=== PATIENT | male | born 1940 | race Hispanic/Latino ===

== ENCOUNTER 2018-03-05 12:43 | Outpatient (CLI) | payer MEDICARE, OTHER ==
[2018-03-05 14:17] LABS: Anion Gap 11 mmol/L (10-20); BUN (Urea Nitrogen) 18 mg/dL (8.4-25.7); Calc. Creatinine Clearance 0 mL/min (70-130); Calcium 10.3 mg/dL (7.8-10.44); Carbon Dioxide 27 mmol/L (23-31); Chloride 106 mmol/L (98-107); Estimated GFR-MDRD 83; Glucose 89 mg/dL (83-110); Potassium 5.5 mmol/L (3.5-5.1); Sodium 138 mmol/L (136-145)
== END 2018-03-05 12:44 | disposition home or self-care (01) ==
LOC: LABBT 12:43
PROVIDERS: ATTEND Internal Medicine Cardiovascular Disease
DX: Z01.818 Encounter for other preprocedural examination (principal); R55 Syncope and collapse
CPT/HCPCS: 80048

== ENCOUNTER → 2018-03-06 | Day surgery (SDC) | payer MEDICARE, OTHER ==
[2018-03-05 13:00] VITALS: BMI 28.2
[~2018-03-06] MED LIST: Lidocaine 1% w/Epinephrine 1:100K 30 ML VIAL ONE; Midazolam HCl 2 mg/2 ml Vial ONE; PHENYLEPHRINE-NS 100 MCG/ML 10 ML SYRINGE ONE
--- NOTE | 2018-03-06 10:05 | DIS ---
He was seen in the outpatient facility to undergo a percutaneous implant of a loop recorder. This wa s performed without difficulties or complications. It was implanted due to episode of syncope, the i ndication for the procedure. DISCHARGE DIAGNOSES: Syncope. He also has history of coronary artery disease, which remained stable . He was implanted with the device without difficulties or complications. DISCHARGE MEDICATIONS: Remain the same as admission medications. I will see him back in the office in 7-10 days for a wound check and will continue to monitor him on a routine basis to determine possible etiology of his syncopal episodes. There were no difficulties or complications encountered otherwise.
--- NOTE | 2018-03-06 19:48 | CCL ---
INDICATION FOR PROCEDURE: A 77-year-old patient with episode of syncope of uncertain etiology. He was advised to is an implant able Linq loop recorder. This was performed today without difficulties or complications. He was taken to the recovery where he did not receive any anesthesia. He was prepped and draped in s terile fashion. Using sterile technique, the implantable loop device was implanted underneath the sk in between the third and fourth intercostal spaces on the left side. He had normal sensing of the de vice. There were no complications or difficulties.
== END ==
LOC: CCL 08:43
PROVIDERS: ATTEND Internal Medicine Cardiovascular Disease
PROC: 0JH602Z Insertion of Monitoring Device into Chest Subcutaneous Tissue and Fascia, Open Approach (ICD-10-PCS; principal; 2018-03-06)
DX: R55 Syncope and collapse (principal); I25.10 Atherosclerotic heart disease of native coronary artery without angina pectoris; Z88.0 Allergy status to penicillin; Z88.1 Allergy status to other antibiotic agents
CPT/HCPCS: 33282; C1764; J2001; J2250

== ENCOUNTER 2020-07-23 11:37 | Outpatient (CLI) | payer MEDICARE, OTHER ==
--- NOTE | 2020-07-23 12:46 | MRI ---
MRI lumbar spine noncontrast: HISTORY: Spinal stenosis. Low back pain radiating to both feet. COMPARISON: None FINDINGS: Appropriate T1 marrow signal intensity of the lumbar vertebra. Lumbar spine vertebral body heights ar e maintained from L1 through L3 and at L5. There is an acute Schmorl's node/superior endplate irregularity involving the L4 vertebral body. There is associated T2 hyperintensity and STIR hyperint ensity. No additional significant STIR hyperintensity is noted. Edema does involve the right L4 pedicle. Small amount of edema and fluid are noted in the left and right L3-L4 facet joints. Moderate loss of vertebral body height in the midportion of the L4 vertebral body. Appropriate signal intensity of the visualized paraspinal muscles and solid organs. Bilateral renal c ortical cysts are noted. Conus medullaris terminates at the inferior aspect of T12. Spondylolisthesis: T12-L1: 2.2 mm of retrolisthesis L1-L2: 3.3 mm of retrolisthesis L2-L3: 3.3 mm of retrolisthesis L3-L4: 4.8 mm of retrolisthesis The overall AP diameter of the central spinal canal is narrowed secondary to congenitally foreshorten ed pedicles. T12-L1:Mild loss of disc space height. Broad-based disc bulge with mild to moderate central canal elyssa nosis. Mild bilateral neural foraminal narrowing. L1-L2:Mild loss of disc space height. Broad-based disc bulge, ligamentum flavum thickening and facet hypertrophy are present. There is a left subarticular disc herniation with slight inferior disc migration. There is mass effect and obscuration of the traversing left L2 nerve root. Overall mild ce ntral canal stenosis. Moderate bilateral neural foraminal narrowing. L2-L3:Disc desiccation without significant loss of disc space height. Broad-based disc bulge, ligamen valente flavum thickening and facet hypertrophy result in moderate central canal stenosis. Moderate bilateral neural foraminal narrowing. L3-L4:Broad-based disc bulge, ligamentum flavum thickening and facet hypertrophy. Moderate to severe central canal stenosis. Moderate to severe bilateral neural foraminal narrowing. L4-L5:Mild loss of disc space height. Broad-based disc bulge, ligamentum flavum thickening and facet hypertrophy. Moderate to severe central canal stenosis. Near complete obscuration of bilateral traversing L5 nerve roots. Moderate bilateral neural foraminal narrowing. L5-S1:Adequate disc hydration. Broad-based disc bulge, ligamentum flavum thickening and facet hypertr ophy result in moderate central canal stenosis. There is fluid in both facet joints. There is narrowing of bilateral subarticular zones, left greater than right. Partial obscuration of the aldo sing right S1 nerve root. Near complete obscuration of the traversing left S1 nerve root. Mild to moderate bilateral neural foraminal narrowing. IMPRESSION: 1. Multilevel degenerative changes of the lumbar spine as described above. 2. Acute Schmorl's node with moderate loss of vertebral body height at L4. No significant retropulsio n. Transcribed Date/Time: 07/23/2020 1:19 PM
== END 2020-07-23 11:38 | disposition home or self-care (01) ==
LOC: MRI 11:37
PROVIDERS: ATTEND Neurological Surgery
DX: M48.062 Spinal stenosis, lumbar region with neurogenic claudication (principal); M47.816 Spondylosis without myelopathy or radiculopathy, lumbar region
CPT/HCPCS: 72148

== ENCOUNTER 2020-08-19 06:58 | Outpatient (CLI) | payer MEDICARE ==
[2020-08-19 15:50] LABS: Hemoglobin 13.8 g/dL (14.0-18.0); Mean Corpuscular HGB CONC 32.6 G/DL (32.0-36.0); Mean Corpuscular Hemoglobin 30.4 PG (27.0-33.0); Mean Corpuscular Volume 93.2 fl (80.0-100.0); Mean Platelet Volume 9.8 fl (7.4-10.4); Platelet Count 300 10x3/uL (130-400); RBC Distribution Width 13.8 % (11.5-14.5); Red Blood Cell (RBC) Count 4.54 10x6/uL (4.40-5.80); White Blood Cell (WBC) Count 10.2 10x3/uL (4.5-11.0)
[2020-08-19 16:34] LABS: Anion Gap 13 mmol/L (10-20); BUN (Urea Nitrogen) 16 mg/dL (8.4-25.7); Calc. Creatinine Clearance 0 mL/min (70-130); Calcium 9.9 mg/dL (7.8-10.44); Carbon Dioxide 25 mmol/L (23-31); Chloride 106 mmol/L (98-107); Estimated GFR-MDRD 77; Glucose 86 mg/dL (83-110); Potassium 4.9 mmol/L (3.5-5.1); Sodium 139 mmol/L (136-145)
[2020-08-20 03:40] LABS: SARS-CoV-2 MS2 Positive; SARS-CoV-2 N Gene Negative; SARS-CoV-2 S Gene Negative; SARS-CoV-2 by NAA Not Detected (NotDetected); SARS-CoV-2 orf1ab Negative
== END 2020-08-19 06:59 | disposition home or self-care (01) ==
LOC: LABBT 06:58
PROVIDERS: ATTEND Neurological Surgery
DX: Z01.812 Encounter for preprocedural laboratory examination (principal); Z20.828 Contact with and (suspected) exposure to other viral communicable diseases; M48.061 Spinal stenosis, lumbar region without neurogenic claudication
CPT/HCPCS: 80048; 85027; U0003; 87635

== ENCOUNTER 2020-08-24 07:31 | Day surgery (SDC) | payer MEDICARE ==
[2020-08-18 11:25] VITALS: BMI 27.7
--- NOTE | 2020-08-23 21:53 | HP ---
HISTORY OF PRESENT ILLNESS: Mr. Bey is a pleasant 80-year-old man, presenting for evaluation of significant and classic symptoms of neurogenic claudication. MRI scan performed reveals high-grade lumbar stenosis from L3-L5, which would well explain the symptoms that he is experiencing. He hopes to discuss surgical intervention. PAST MEDICAL HISTORY: Significant for hypertension, hyperlipidemia, and coronary arterial disease. CURRENT MEDICATIONS: 1. Carvedilol. 2. Atorvastatin. 3. Aspirin. 4. Vitamin . PAST SURGICAL HISTORY: Tonsillectomy. ALLERGIES: PENICILLIN AND LEVAQUIN. PHYSICAL EXAMINATION: The patient has a slowed antalgic gait, although maintains 5/5 strength in all lower extremity movements bilaterally. ASSESSMENT: Lumbar stenosis with claudication. PLAN: Dr. Kuhn met with the patient, reviewed imaging, and advocated for L3-L5 decompression. He explained to the patient risks, benefits, and alternatives to the procedure. The patient expressed understanding and elected to moved forward with surgery as discussed. I do believe the patient is mentally competent and capable of making medical decisions for himself. We will move forward with surgery as planned. Job ID: [id number]
[2020-08-24] MEDS ORDERED: Vancomycin 1 GM/200 ML BAG ONE ×2 (10:14)
[2020-08-24] MEDS ORDERED: EPINEPHrine 1 MG/ML AMP ONE (10:33)
[2020-08-24] MEDS ORDERED: Thrombin 5000 UNITS/5 ML VIAL ONE (10:33)
[2020-08-24] MEDS ORDERED: Bupivacaine PF 0.5% 30 ML VIAL ONE (10:33)
[2020-08-24] MEDS ORDERED: Fentanyl 100 MCG/2 ML VIAL ONE ×2 (10:39→13:07)
[2020-08-24] MEDS ORDERED: HYDROmorphone 0.5 MG/0.5 ML SYRINGE ONE (12:44)
[2020-08-24] MEDS ORDERED: Tamsulosin HCl 0.4 MG CAP ONE (12:44)
[2020-08-24] MEDS ORDERED: PROPOFOL 200 MG/20 ML VIAL ONE (13:57)
[2020-08-24] MEDS ORDERED: Ondansetron PF 4 MG/2 ML Vial ONE (13:57)
[2020-08-24] MEDS ORDERED: Lidocaine 1% PF 5 ML VIAL ONE (13:57)
[2020-08-24] MEDS ORDERED: ePHEDrine 50 MG/ML VIAL ONE (13:57)
[2020-08-24] MEDS ORDERED: Dexamethasone 20 MG/5 ML VIAL ONE (13:57)
[2020-08-24] MEDS ORDERED: Glycopyrrolate 0.2 MG/ML 5 ML SYRINGE ONE (13:57)
[2020-08-24] MEDS ORDERED: Rocuronium Bromide 10 MG/ML (10ML VIAL) ONE (13:57)
[2020-08-24] MEDS ORDERED: PHENYLEPHRINE-NS 100 MCG/ML 10 ML SYRINGE ONE (13:57)
--- NOTE | 2020-08-25 11:33 | OP ---
DATE OF PROCEDURE: 08/24/2020 [employer]MER: Titus Kim PA-C INDICATION: Pain. DIAGNOSIS: Lumbar stenosis. PROCEDURES PERFORMED: L3 through L5 lumbar decompression. ANESTHESIA: General. DESCRIPTION OF PROCEDURE: The patient was brought into the operating room and placed under general anesthesia. He was flipped from the supine to prone position on the operating room table. A linear incision was planned spanning L3 through L5. After prepping and draping and after an appropriate preoperative pause, the incision was created. The soft tissues were swept away from midline. A self-retaining retractor was placed for optimal exposure. After confirming the appropriate level with C-arm fluoroscopy, an Adson rongeur was used to remove the spinous process of L4, the inferior aspect of L3, and the superior aspect of L5. After completing the removal of the spinous processes, a high-speed cutting drill bit as well as 2, 3, and 4 mm Kerrisons were then used to complete the laminectomy spanning L3-L4 and L4-L5 segments. The laminectomy was extended laterally to encompass the medial aspect of the facet joints. After completing the decompression, the wound was irrigated. Hemostasis was maintained throughout. The wound was then closed in anatomic layers, and a pressure dressing was applied. There were no known procedural complications. Job ID: [id number]
== END 2020-08-24 21:10 | disposition home or self-care (01) ==
LOC: SDC 07:31
PROVIDERS: ATTEND Neurological Surgery
PROC: 00NY0ZZ Release Lumbar Spinal Cord, Open Approach (ICD-10-PCS; principal; 2020-08-24)
DX: M48.062 Spinal stenosis, lumbar region with neurogenic claudication (principal); I10 Essential (primary) hypertension; I25.10 Atherosclerotic heart disease of native coronary artery without angina pectoris; E78.5 Hyperlipidemia, unspecified; Z79.82 Long term (current) use of aspirin; Z79.899 Other long term (current) drug therapy; Z88.0 Allergy status to penicillin; Z88.1 Allergy status to other antibiotic agents
CPT/HCPCS: 76000; J0171; J1100; J1170; J2405; J2704; J3010; J3370; J3490; S0020

== ENCOUNTER 2021-08-26 10:24 | Outpatient (CLI) | payer MEDICARE | END 2021-08-26 10:25 | disposition home or self-care (01) | LOC: MRI 10:24 | PROVIDERS: ATTEND Neurological Surgery | DX: M47.26 Other spondylosis with radiculopathy, lumbar region (principal); M48.061 Spinal stenosis, lumbar region without neurogenic claudication; M48.07 Spinal stenosis, lumbosacral region; Z98.890 Other specified postprocedural states | CPT/HCPCS: 72158 ==

== ENCOUNTER 2021-11-10 10:17 | Outpatient (CLI) | payer MEDICARE ==
[2021-11-10 11:42] LABS: Hemoglobin 12.4 g/dL (13.5-17.5); Mean Corpuscular HGB CONC 31.5 g/dL (32.0-36.0); Mean Corpuscular Volume 95.4 fl (81.2-95.1); Mean Platelet Volume 9.8 fl (7.4-10.4); Platelet Count 286 10x3/uL (150-450); Red Blood Cell (RBC) Count 4.13 10x6/uL (4.32-5.72); White Blood Cell (WBC) Count 10.5 10x3/uL (3.5-10.5)
[2021-11-10 12:03] LABS: Anion Gap 12 mmol/L (10-20); BUN (Urea Nitrogen) 11 mg/dL (8.4-25.7); Calc. Creatinine Clearance 0 mL/min (70-130); Calcium 9.9 mg/dL (7.8-10.44); Carbon Dioxide 24 mmol/L (23-31); Chloride 110 mmol/L (98-107); Glucose 98 mg/dL (83-110); Potassium 4.3 mmol/L (3.5-5.1); Sodium 142 mmol/L (136-145)
[2021-11-10 17:56] LABS: SARS-CoV-2 PCR by NAA Not Detected (NotDetected)
== END 2021-11-10 10:18 | disposition home or self-care (01) ==
LOC: LABBT 10:17
PROVIDERS: ATTEND Neurological Surgery
DX: Z01.818 Encounter for other preprocedural examination (principal); M54.16 Radiculopathy, lumbar region; Z20.822 Contact with and (suspected) exposure to COVID-19
CPT/HCPCS: 80048; 85027; 93005; U0003; U0005; 93010

== ENCOUNTER 2021-11-15 06:27 | Day surgery (SDC) | payer MEDICARE ==
[2021-11-10 12:11] VITALS: BMI 25.7
[2021-11-15] MEDS ORDERED: EPINEPHrine 1 MG/ML AMP ONE (08:48)
[2021-11-15] MEDS ORDERED: Bupivacaine PF 0.5% 30 ML VIAL ONE (08:48)
[2021-11-15] MEDS ORDERED: Fentanyl 250 MCG/5 ML VIAL ONE ×2 (08:52→10:56)
[2021-11-15] MEDS ORDERED: SUGAMMADEX SODIUM 200 MG/2 ML VIAL ONE (09:05)
[2021-11-15] MEDS ORDERED: Vancomycin 1 GM/200 ML BAG ONE (09:05)
[2021-11-15] MEDS ORDERED: Lidocaine 1% PF 5 ML VIAL ONE (09:13)
[2021-11-15] MEDS ORDERED: Dexamethasone 20 MG/5 ML VIAL ONE (09:13)
[2021-11-15] MEDS ORDERED: PHENYLEPHRINE-NS 100 MCG/ML 10 ML SYRINGE ONE (09:13)
[2021-11-15] MEDS ORDERED: Ondansetron PF 4 MG/2 ML Vial ONE (09:13)
[2021-11-15] MEDS ORDERED: PROPOFOL 200 MG/20 ML VIAL ONE (09:13)
[2021-11-15] MEDS ORDERED: Rocuronium Bromide 10 MG/ML (10ML VIAL) ONE (09:13)
[2021-11-15] MEDS ORDERED: Tamsulosin HCl 0.4 MG CAP ONE (10:39)
[2021-11-15] MEDS ORDERED: HYDROcodone/Acetaminophen 5/325 mg Tablet ONE (11:57)
== END 2021-11-15 14:27 | disposition home or self-care (01) ==
LOC: SDC 06:27
PROVIDERS: ATTEND Neurological Surgery
PROC: 01NB0ZZ Release Lumbar Nerve, Open Approach (ICD-10-PCS; principal; 2021-11-15)
DX: M54.16 Radiculopathy, lumbar region (principal); J45.909 Unspecified asthma, uncomplicated; I25.10 Atherosclerotic heart disease of native coronary artery without angina pectoris; I10 Essential (primary) hypertension; E78.5 Hyperlipidemia, unspecified; Z79.82 Long term (current) use of aspirin; Z79.899 Other long term (current) drug therapy; Z88.0 Allergy status to penicillin; Z88.1 Allergy status to other antibiotic agents; Z95.0 Presence of cardiac pacemaker; Z98.890 Other specified postprocedural states
CPT/HCPCS: 76000; J0171; J1100; J2405; J2704; J3010; J3370; S0020

== ENCOUNTER 2022-11-16 10:27 | Outpatient (CLI) | payer MEDICARE, OTHER ==
[2022-11-16 12:37] LABS: Mean Corpuscular Hemoglobin 29.7 pg (27.0-33.0); Mean Corpuscular Volume 92.8 fl (81.2-95.1); Mean Platelet Volume 9.6 fl (7.4-10.4); Platelet Count 387 10x3/uL (150-450); RBC Distribution Width 15.5 % (11.5-14.5); Red Blood Cell (RBC) Count 4.04 10x6/uL (4.32-5.72); White Blood Cell (WBC) Count 9.2 10x3/uL (3.5-10.5)
[2022-11-16 13:00] LABS: INR-International Normal Ratio 0.9; PTT 25.9 sec (22.0-33.0); Prothrombin Time 10.1 sec (9.5-12.1)
[2022-11-16 13:07] LABS: Anion Gap 17 mmol/L (10-20); BUN (Urea Nitrogen) 17 mg/dL (8.4-25.7); Calc. Creatinine Clearance 0 mL/min (70-130); Calcium 10.4 mg/dL (7.8-10.44); Carbon Dioxide 19 mmol/L (23-31); Chloride 108 mmol/L (98-107); Estimated GFR 70; Glucose 89 mg/dL (83-110); Potassium 5.2 mmol/L (3.5-5.1); Sodium 139 mmol/L (136-145)
== END 2022-11-16 10:28 | disposition home or self-care (01) ==
LOC: LABBT 10:27
PROVIDERS: ATTEND Urology
DX: Z01.812 Encounter for preprocedural laboratory examination (principal); D49.4 Neoplasm of unspecified behavior of bladder
CPT/HCPCS: 80048; 85027; 85610; 85730; 87086

== ENCOUNTER 2022-11-21 06:53 | Day surgery (SDC) | payer MEDICARE, OTHER ==
[2022-11-17 16:31] VITALS: BMI 24.5
[2022-11-21] MEDS ORDERED: mitoMYcin 40 MG in Sodium Chloride 0.9% 40 ML I-VESIC SCH ×2 (08:45→10:00)
[2022-11-21] MEDS ORDERED: Sodium Chloride 0.9% 100 ML ONE (08:54)
[2022-11-21] MEDS ORDERED: CEFAZOLIN 2 GM VIAL ONE (08:54)
[2022-11-21] MEDS ORDERED: Dexamethasone 20 MG/5 ML VIAL ONE (09:04)
[2022-11-21] MEDS ORDERED: PROPOFOL 200 MG/20 ML VIAL ONE (09:04)
[2022-11-21] MEDS ORDERED: Glycopyrrolate 0.2 MG/ML 5 ML SYRINGE ONE (09:04)
[2022-11-21] MEDS ORDERED: Ondansetron PF 4 MG/2 ML Vial ONE (09:04)
[2022-11-21] MEDS ORDERED: Lidocaine 1% PF 5 ML VIAL ONE (09:04)
[2022-11-21] MEDS ORDERED: Rocuronium Bromide 10 MG/ML (10ML VIAL) ONE (09:04)
[2022-11-21] MEDS ORDERED: NEOSTIGMINE 3 MG/3 ML SYR 3 MG/3 ML SYRINGE ONE (09:04)
== END 2022-11-21 11:10 | disposition home or self-care (01) ==
LOC: SDC 06:53
PROVIDERS: ATTEND Urology
PROC: 0TBB8ZZ Excision of Bladder, Via Natural or Artificial Opening Endoscopic (ICD-10-PCS; principal; 2022-11-21)
PROC: 3E0K805 Introduction of Other Antineoplastic into Genitourinary Tract, Via Natural or Artificial Opening Endoscopic (ICD-10-PCS; 2022-11-21)
DX: C67.2 Malignant neoplasm of lateral wall of bladder (principal); I10 Essential (primary) hypertension; I49.5 Sick sinus syndrome; I25.10 Atherosclerotic heart disease of native coronary artery without angina pectoris; Z79.82 Long term (current) use of aspirin; Z79.899 Other long term (current) drug therapy; Z88.0 Allergy status to penicillin; Z88.1 Allergy status to other antibiotic agents; Z95.0 Presence of cardiac pacemaker
CPT/HCPCS: 51720; 52234; 93005; J9280; 88305; 93010; J1100; J2405; J2704; J3490

== ENCOUNTER 2024-02-02 08:24 | Outpatient (CLI) | payer MEDICARE, OTHER | END 2024-02-02 08:25 | disposition home or self-care (01) | LOC: RAD 08:24 | PROVIDERS: ATTEND Neurological Surgery | DX: M54.16 Radiculopathy, lumbar region (principal) | CPT/HCPCS: 71046 ==

== ENCOUNTER 2024-02-05 08:06 | Outpatient (CLI) | payer MEDICARE, OTHER ==
[2024-02-05] MEDS ORDERED: Magnevist 469MG/ML 20 ML VIAL ONE (10:27)
== END 2024-02-05 08:07 | disposition home or self-care (01) ==
LOC: MRI 08:06
PROVIDERS: ATTEND Neurological Surgery
DX: M47.26 Other spondylosis with radiculopathy, lumbar region (principal); M48.061 Spinal stenosis, lumbar region without neurogenic claudication; M47.817 Spondylosis without myelopathy or radiculopathy, lumbosacral region; Z98.890 Other specified postprocedural states
CPT/HCPCS: 72158; 82565; A9579

== ENCOUNTER 2024-07-29 10:32 | Outpatient (CLI) | payer MEDICARE, OTHER ==
[2024-07-29 12:56] LABS: #Basophils 0.13 10x3/uL (0.0-0.2); %Eosinophils 4.8 % (0.0-10.0); %Lymphocytes 21.5 % (21.0-51.0); %Monocytes 8.7 % (0.0-10.0); %Neutrophils 63.4 % (42.0-75.0); Hemoglobin 13.5 g/dL (14.0-18.0); Mean Corpuscular HGB CONC 32.9 g/dL (32.0-36.0); Mean Corpuscular Hemoglobin 29.9 pg (27.0-31.0); Mean Corpuscular Volume 90.9 fL (78.0-98.0); Mean Platelet Volume 9.8 fL (7.4-10.4); Platelet Count 339 10x3/uL (130-400); RBC Distribution Width 13.8 % (11.5-14.5); Red Blood Cell (RBC) Count 4.51 mill/uL (4.70-6.10)
[2024-07-29 13:14] LABS: Anion Gap 13 mmol/L (10-20); BUN (Urea Nitrogen) 16 mg/dL (8.4-25.7); Calc. Creatinine Clearance 0 mL/min (70-130); Calcium 10.4 mg/dL (7.8-10.44); Carbon Dioxide 24 mmol/L (23-31); Chloride 106 mmol/L (98-107); Estimated GFR 85; Glucose 92 mg/dL (83-110); Potassium 4.4 mmol/L (3.5-5.1); Sodium 139 mmol/L (136-145)
[2024-07-29 13:32] LABS: Prothrombin Time 12.6 sec (12.0-14.7)
[2024-07-29 13:33] LABS: PTT 24.3 sec (22.9-36.1)
== END 2024-07-29 10:33 | disposition home or self-care (01) ==
LOC: LABBT 10:32
PROVIDERS: ATTEND Urology
DX: Z01.812 Encounter for preprocedural laboratory examination (principal); N21.0 Calculus in bladder; Z85.51 Personal history of malignant neoplasm of bladder; Z12.5 Encounter for screening for malignant neoplasm of prostate
CPT/HCPCS: 80048; 85025; 85610; 85730; 87086; G0103

== ENCOUNTER 2024-08-05 05:53 | Day surgery (SDC) | payer MEDICARE, OTHER ==
[2024-08-05] MEDS ORDERED: Lidocaine 2% PF 5 ML VIAL ONE (07:26)
[2024-08-05] MEDS ORDERED: PROPOFOL 20 ML ONE (07:26)
[2024-08-05] MEDS ORDERED: CEFAZOLIN 2 GM VIAL ONE (07:28)
[2024-08-05] MEDS ORDERED: Sodium Chloride 0.9% 250 ML 250 ML ONE ×2 (07:31→08:45)
[2024-08-05] MEDS ORDERED: PHENYLEPHRINE-NS 100 MCG/ML 10 ML SYRINGE ONE ×2 (07:34→08:18)
== END 2024-08-05 11:50 | disposition home or self-care (01) ==
LOC: SDC 05:53
PROVIDERS: ATTEND Urology
PROC: 0TCB8ZZ Extirpation of Matter from Bladder, Via Natural or Artificial Opening Endoscopic (ICD-10-PCS; principal; 2024-08-05)
DX: N21.0 Calculus in bladder (principal); Z85.51 Personal history of malignant neoplasm of bladder; Z88.0 Allergy status to penicillin; Z88.1 Allergy status to other antibiotic agents; I10 Essential (primary) hypertension; I25.10 Atherosclerotic heart disease of native coronary artery without angina pectoris; E78.00 Pure hypercholesterolemia, unspecified; Z98.890 Other specified postprocedural states; Z79.899 Other long term (current) drug therapy
CPT/HCPCS: 52317; 82365; 93005; J2704; J7050; 88300; 93010

== ENCOUNTER 2024-10-04 10:31 | Outpatient (CLI) | payer MEDICARE, OTHER ==
[2024-10-04 11:35] LABS: #Basophils 0.12 10x3/uL (0.0-0.2); %Basophils 1.1 % (0.0-1.0); %Eosinophils 4.1 % (0.0-10.0); %Lymphocytes 15.7 % (21.0-51.0); %Monocytes 8.1 % (0.0-10.0); %Neutrophils 70.3 % (42.0-75.0); Hematocrit 36.9 % (42.0-52.0); Hemoglobin 11.7 g/dL (14.0-18.0); Mean Corpuscular HGB CONC 31.7 g/dL (32.0-36.0); Mean Corpuscular Hemoglobin 29.1 pg (27.0-31.0); Mean Corpuscular Volume 91.8 fL (78.0-98.0); Platelet Count 398 10x3/uL (130-400); RBC Distribution Width 14.2 % (11.5-14.5); Red Blood Cell (RBC) Count 4.02 mill/uL (4.70-6.10)
[2024-10-04 12:21] LABS: Anion Gap 8 mmol/L (10-20); BUN (Urea Nitrogen) 23 mg/dL (8.4-25.7); Calc. Creatinine Clearance 0 mL/min (70-130); Calcium 9.9 mg/dL (7.8-10.44); Carbon Dioxide 28 mmol/L (23-31); Chloride 110 mmol/L (98-107); Estimated GFR 79; Glucose 111 mg/dL (83-110); Potassium 4.4 mmol/L (3.5-5.1); Sodium 142 mmol/L (136-145)
== END 2024-10-04 10:32 | disposition home or self-care (01) ==
LOC: LABBT 10:31
PROVIDERS: ATTEND Neurological Surgery
DX: Z01.812 Encounter for preprocedural laboratory examination (principal); M48.061 Spinal stenosis, lumbar region without neurogenic claudication
CPT/HCPCS: 80048; 85025

== ENCOUNTER 2024-10-11 06:38 | Day surgery (SDC) | payer MEDICARE, OTHER ==
[2024-10-04 10:56] VITALS: BMI 26.3
[2024-10-11] MEDS ORDERED: EPINEPHrine 1 MG/ML VIAL ONE (07:06)
[2024-10-11] MEDS ORDERED: Thrombin 5000 UNITS/5 ML VIAL ONE (07:06)
[2024-10-11] MEDS ORDERED: Bupivacaine PF 0.5% 30 ML VIAL ONE (07:06)
[2024-10-11] MEDS ORDERED: Famotidine/PF 20 mg/2ml Vial ONE (07:19)
[2024-10-11] MEDS ORDERED: Clindamycin/D5W 900 mg/50 ml Premix Bag ONE (07:23)
[2024-10-11] MEDS ORDERED: fentaNYL 50 mcg/mL 1 mL Vial ONE (07:29)
[2024-10-11] MEDS ORDERED: PROPOFOL 20 ML ONE (07:29)
[2024-10-11] MEDS ORDERED: Rocuronium Bromide 10 MG/ML (10ML VIAL) ONE (07:30)
[2024-10-11] MEDS ORDERED: Lidocaine 1% PF 5 ML VIAL ONE (07:44)
[2024-10-11] MEDS ORDERED: PHENYLEPHRINE-NS 100 MCG/ML 10 ML SYRINGE ONE ×2 (08:17)
[2024-10-11] MEDS ORDERED: ePHEDrine Sulfate 50 MG/10 ML VIAL ONE (08:19)
[2024-10-11] MEDS ORDERED: SUGAMMADEX SODIUM 200 MG/2 ML VIAL ONE (08:20)
[2024-10-11] MEDS ORDERED: Ketorolac Tromethamine 30 MG (1 mL) VIAL ONE (08:20)
[2024-10-11] MEDS ORDERED: Ondansetron PF 4 MG/2 ML Vial ONE (08:20)
[2024-10-11] MEDS ORDERED: Dexamethasone 20 MG/5 ML VIAL ONE (08:20)
[2024-10-11] MEDS ORDERED: Tamsulosin HCl 0.4 MG CAP ONE (09:23)
== END 2024-10-11 13:15 | disposition home or self-care (01) ==
LOC: SDC 06:38
PROVIDERS: ATTEND Neurological Surgery
PROC: 00NY0ZZ Release Lumbar Spinal Cord, Open Approach (ICD-10-PCS; principal; 2024-10-11)
DX: M48.061 Spinal stenosis, lumbar region without neurogenic claudication (principal); I10 Essential (primary) hypertension; I25.10 Atherosclerotic heart disease of native coronary artery without angina pectoris; I49.5 Sick sinus syndrome; E78.5 Hyperlipidemia, unspecified; Z95.0 Presence of cardiac pacemaker; Z87.891 Personal history of nicotine dependence; Z85.46 Personal history of malignant neoplasm of prostate; Z85.51 Personal history of malignant neoplasm of bladder; Z90.89 Acquired absence of other organs; Z90.79 Acquired absence of other genital organ(s); Z88.0 Allergy status to penicillin; Z88.1 Allergy status to other antibiotic agents; Z79.82 Long term (current) use of aspirin; Z79.899 Other long term (current) drug therapy
CPT/HCPCS: 63047; 63048; J0171; J0665; J1100; J1885; J2405; J2704; J3010; J3490 ×2

== ENCOUNTER 2025-04-23 09:39 | Observation (INO) | payer MEDICARE, OTHER ==
[2025-04-23 10:48] LABS: #Basophils 0.09 10x3/uL (0.0-0.2); #Eosinophils 0.35 10x3/uL (0.0-0.7); #Monocytes 0.62 10x3/uL (0.11-0.59); #Neutrophils 6.12 10x3/uL (1.40-6.50); %Basophils 1.0 % (0.0-1.0); %Eosinophils 3.9 % (0.0-10.0); %Lymphocytes 18.8 % (21.0-51.0); %Monocytes 7.0 % (0.0-10.0); %Neutrophils 69.0 % (42.0-75.0); Hematocrit 40.4 % (42.0-52.0); Hemoglobin 12.7 g/dL (14.0-18.0); Mean Corpuscular Hemoglobin 28.9 pg (27.0-31.0); Mean Corpuscular Volume 91.8 fL (78.0-98.0); Platelet Count 191 10x3/uL (130-400); Red Blood Cell (RBC) Count 4.40 mill/uL (4.70-6.10); White Blood Cell (WBC) Count 8.88 10x3/uL (4.8-10.8)
[2025-04-23 10:51] LABS: ALT (SGPT) 26 U/L (Less than 45); AST (SGOT) 36 U/L (11-34); Albumin 3.7 g/dL (3.1-4.5); Alkaline Phosphatase 75 U/L (40-110); Anion Gap 12 mmol/L (10-20); BUN (Urea Nitrogen) 13 mg/dL (8.4-25.7); Bilirubin, Total 0.4 mg/dL (0.3-1.2); Calc. Creatinine Clearance 0 mL/min (70-130); Calcium 10.2 mg/dL (7.8-10.44); Carbon Dioxide 23 mmol/L (23-31); Chloride 108 mmol/L (98-107); Globulin 3.2 g/dL (2.4-3.5); Glucose 98 mg/dL (83-110); Potassium 4.3 mmol/L (3.5-5.1); Sodium 139 mmol/L (136-145)
[2025-04-23 11:16] LABS: Troponin I 0.039 ng/mL (< 0.028)
[2025-04-23] MEDS ORDERED: Iopamidol-370 76% 500 ML MDV (1 ML CHARGE) ONE (11:29)
[2025-04-23] MEDS ORDERED: Aspirin Chewable 81 MG TAB ONE (12:02)
[2025-04-23 12:09] LABS: INR-International Normal Ratio 1.0; PTT 27.7 sec (22.9-36.1); Prothrombin Time 13.0 sec (12.0-14.7)
[2025-04-23] MEDS ORDERED: Guaifenesin DM 100-10/5 ML UDCUP PO PRN (15:57)
[2025-04-23] MEDS ORDERED: hydrALAZINE 20 MG/ML VIAL SLOW IVP PRN (15:57)
[2025-04-23] MEDS ORDERED: Ondansetron PF 4 MG/2 ML Vial IVP PRN (15:57)
[2025-04-23] MEDS ORDERED: Acetaminophen 325 MG TAB PO PRN (15:57)
[2025-04-23] MEDS ORDERED: Senokot S 8.6-50 MG TAB PO PRN (15:57)
[2025-04-23] MEDS ORDERED: Electrolyte Replacement Protocol 1 EACH FS SCH (16:00)
[2025-04-23 16:19] VITALS: BMI 26.3
[2025-04-23 16:38] LABS: Troponin I 0.030 ng/mL (< 0.028)
[2025-04-23 18:25] LABS: Bacteria/HPF None Seen HPF (None Seen); CAUTI Indications for Culture Alt mental st,lethar; Glucose, Urine (Dipstick) Normal (Negative); Leukocyte 250 Leu/uL (Negative); Protein, Urine (Dipstick) Negative (Neg-Trace); RBC/HPF 0-3 HPF (0-3); Specific Gravity, Urine 1.023 (1.002-1.036)
[2025-04-23 18:27] LABS: Urine Culture Reflex Yes Yes
[2025-04-23 18:41] LABS: Troponin I 0.045 ng/mL (< 0.028)
[2025-04-24 04:54] LABS: #Basophils 0.10 10x3/uL (0.0-0.2); #Eosinophils 0.55 10x3/uL (0.0-0.7); #Monocytes 1.14 10x3/uL (0.11-0.59); #Neutrophils 6.88 10x3/uL (1.40-6.50); %Basophils 0.9 % (0.0-1.0); %Eosinophils 5.0 % (0.0-10.0); %Lymphocytes 21.2 % (21.0-51.0); %Monocytes 10.3 % (0.0-10.0); %Neutrophils 62.1 % (42.0-75.0); Hematocrit 35.2 % (42.0-52.0); Hemoglobin 11.2 g/dL (14.0-18.0); Mean Corpuscular Hemoglobin 28.9 pg (27.0-31.0); Mean Corpuscular Volume 90.7 fL (78.0-98.0); Platelet Count 248 10x3/uL (130-400); Red Blood Cell (RBC) Count 3.88 mill/uL (4.70-6.10); White Blood Cell (WBC) Count 11.07 10x3/uL (4.8-10.8)
[2025-04-24 05:14] LABS: Anion Gap 13 mmol/L (10-20); BUN (Urea Nitrogen) 14 mg/dL (8.4-25.7); Calc. Creatinine Clearance 86 mL/min (70-130); Calcium 9.4 mg/dL (7.8-10.44); Carbon Dioxide 19 mmol/L (23-31); Cardiac Risk 2.9 (Less than 4.5); Chloride 113 mmol/L (98-107); Cholesterol 118 mg/dl (< 200 Desired); Glucose 88 mg/dL (83-110); HDL Cholesterol 41 mg/dL (>60 Neg Risk); LDL Cholesterol, Calculated 47 mg/dL; Potassium 4.2 mmol/L (3.5-5.1); Sodium 141 mmol/L (136-145); Triglycerides 151 mg/dL (Less than 150)
[2025-04-24] MEDS: Aspirin 81 mg Enteric Coated Tablet PO SCH (09:40)
[2025-04-24 16:40] VITALS: BP 170/82; TEMP 98.7
== END 2025-04-24 17:27 | disposition home or self-care (01) ==
LOC: ERS 09:39 → 2SE 15:22 → ERHOLD 15:23 → 2SE 18:24
PROVIDERS: ADMIT Hospitalist; ATTEND Hospitalist
DX: I65.09 Occlusion and stenosis of unspecified vertebral artery (principal); R42 Dizziness and giddiness; I10 Essential (primary) hypertension; I25.10 Atherosclerotic heart disease of native coronary artery without angina pectoris; I25.84 Coronary atherosclerosis due to calcified coronary lesion; E78.5 Hyperlipidemia, unspecified; Z95.0 Presence of cardiac pacemaker; R79.89 Other specified abnormal findings of blood chemistry; Z88.0 Allergy status to penicillin; Z88.1 Allergy status to other antibiotic agents; Z79.82 Long term (current) use of aspirin; Z79.899 Other long term (current) drug therapy; Z87.891 Personal history of nicotine dependence
CPT/HCPCS: 36415; 70450; 70496; 70498; 71045; 80053; 81001; 84484 ×2; 85025; 85610; 85730; 87086; 93005; J7030; 70551; 76014; 80048; 80061; 93306; Q9967